=== PATIENT | male | born 1995 | race Two or more races ===

== ENCOUNTER 2019-04-19 22:43 | Emergency (ER) | payer MEDICAID ==
[~2019-04-19] VITALS: Ht 170.2 cm; Wt 93.4 kg
--- NOTE | 2019-04-19 23:08 | NUR ---
DR. RAMOS AT BEDSIDE FOR MSE.
[2019-04-19] MEDS ORDERED: OXYCODONE/APAP 5-325 MG TABLET ONE (23:57)
[2019-04-20] MEDS ORDERED: OXYCODONE/APAP 5-325 MG TABLET PO ONE
[2019-04-20 00:20] VITALS: BP 148/90
== END 2019-04-20 00:20 | disposition home or self-care (01) ==
LOC: ER 22:50
DX: N20.0 Calculus of kidney (principal)
CPT/HCPCS: A4663

== ENCOUNTER 2021-02-27 00:25 | Emergency (ER) | payer MEDICAID ==
[~2021-02-27] VITALS: Ht 170.2 cm; Wt 90.7 kg
--- NOTE | 2021-02-27 00:46 | NUR ---
Dr. Estrada at bedside
[2021-02-27] MEDS ORDERED: HYDR-3980 PO (01:01)
--- NOTE | 2021-02-27 01:24 | NUR ---
Patient discharged to home in stable condition. Written and verbal after care instructions given. Patient verbalizes understanding of instructions. Stressed follow up or return to ER for worsening s/s. NAD. VSS. All belongings taken.
[2021-02-27 01:25] VITALS: BP 119/75
== END 2021-02-27 01:25 | disposition home or self-care (01) ==
LOC: ER 00:31
DX: M94.0 Chondrocostal junction syndrome [Tietze] (principal); I45.10 Unspecified right bundle-branch block
CPT/HCPCS: 93005; A4663

== ENCOUNTER 2023-01-14 17:19 | Emergency (ER) | payer MEDICAID ==
[~2023-01-14] VITALS: Ht 170.2 cm; Wt 108.9 kg
[~2023-01-14 17:19] MED LIST: HYDR-3980 PO
[2023-01-14] MEDS ORDERED: PRED20TA PO (17:33)
[2023-01-14] MEDS ORDERED: DIPH25CA83 PO (17:33)
[2023-01-14] MEDS ORDERED: FAMO-132 PO (17:33)
[2023-01-14 17:43] VITALS: BP 120/75
== END 2023-01-14 17:43 | disposition home or self-care (01) ==
LOC: ER 17:20
DX: T78.40XA Allergy, unspecified, initial encounter (principal); Z79.899 Other long term (current) drug therapy; Y92.89 Other specified places as the place of occurrence of the external cause
CPT/HCPCS: A4663

== ENCOUNTER 2023-07-03 20:00 | Emergency (ER) | payer MEDICAID, OTHER ==
[~2023-07-03] VITALS: Ht 170.2 cm; Wt 93.9 kg
[~2023-07-03 20:00] MED LIST changes: +DIPH25CA83 PO; +FAMO-132 PO; +PRED20TA PO
[2023-07-03] MEDS ORDERED: KETOROLAC TROMETHAMINE 30 MG INJ ONE (21:42)
[2023-07-03] MEDS ORDERED: ONDANSETRON 4 MG/2 ML VIAL ONE (21:42)
[2023-07-03] MEDS ORDERED: HYDROMORPHONE 1 MG/1 ML DISP.SYRIN ONE (21:42)
[2023-07-03] MEDS ORDERED: KETOROLAC TROMETHAMINE 30 MG INJ IVP ONE (21:45)
[2023-07-03] MEDS ORDERED: ONDANSETRON 4 MG/2 ML VIAL IV ONE (21:45)
[2023-07-03] MEDS ORDERED: HYDROMORPHONE 1 MG/1 ML DISP.SYRIN IV ONE (21:45)
[2023-07-03 22:21] LABS: *BILIRUBIN,URIN NEGATIVE (NEGATIVE); *BLOOD, URINE NEGATIVE (NEGATIVE); *CLARITY,URINE CLEAR (CLEAR); *COLOR,URINE YELLOW (YELLOW); *KETONES,URINE NEGATIVE (NEGATIVE); *PROTEIN,URINE NEGATIVE (NEGATIVE); *UROBILINOGEN,URINE 0.2 E.U./dl (NORMAL); LEUKOCYTE ESTERASE ,URINE NEGATIVE (NEGATIVE); NITRITE, URINE NEGATIVE (NEGATIVE); PH,URINE 5.5 (5.0-8.0); UGLUCOSE NEGATIVE (NEGATIVE)
[2023-07-03] MEDS ORDERED: ONDA4TAB11 PO (22:36)
[2023-07-03] MEDS ORDERED: IBUP-1490 PO (22:36)
[2023-07-03] MEDS ORDERED: OXYC-133 PO (22:36)
[2023-07-03 22:44] VITALS: BP 138/82; TEMP 97.9; O2SAT 99
== END 2023-07-03 22:44 | disposition home or self-care (01) ==
LOC: ER 20:03
DX: N20.0 Calculus of kidney (principal); Z79.899 Other long term (current) drug therapy
CPT/HCPCS: 76770; A4606; A4663; J1170; J1885; J2405

== ENCOUNTER 2024-08-23 17:23 | Emergency (ER) | payer OTHER ==
[~2024-08-23] VITALS: Ht 170.2 cm; Wt 90.7 kg
[~2024-08-23 17:23] MED LIST changes: +IBUP-1490 PO; +ONDA4TAB11 PO; +OXYC-133 PO
[2024-08-23 18:24] LABS: BASOPHILS % (AUTO) 0.7 % (0.0-2.0); EOSINOPHILS # (AUTO) 0.2 K/uL (0.0-0.7); EOSINOPHILS % (AUTO) 2.7 % (0.0-7.0); HEMATOCRIT 42.3 % (36.7-47.1); HEMOGLOBIN 14.8 g/dL (12.5-16.3); LYMPHOCYTES # (AUTO) 2.4 K/uL (0.8-4.8); LYMPHOCYTES % (AUTO) 34.2 % (20.5-51.5); MEAN CORPUSCULAR HEMOGLOBIN 31.7 uug (23.8-33.4); MEAN CORPUSCULAR HGB CONC 35 g/dL (32.5-36.3); MEAN CORPUSCULAR VOLUME 90.8 fL (73.0-96.2); MONOCYTES # (AUTO) 0.5 K/uL (0.1-1.30); MONOCYTES % (AUTO) 7.2 % (0.0-11.0); NEUTROPHILS # (AUTO) 3.8 K/uL (1.8-8.9); NEUTROPHILS % (AUTO) 55.2 % (38.5-71.5); PLATELET COUNT (AUTO) 257 K/uL (152-348); RED BLOOD CELL COUNT(AUTO) 4.65 MIL/uL (4.06-5.63); RED CELL DISTRIBUTION WIDTH 13.9 % (12.1-16.2); WHITE BLOOD COUNT (AUTO) 6.9 K/uL (3.6-10.2)
[2024-08-23 18:38] LABS: CALCIUM 9.1 mg/dL (8.5-10.1); CARBON DIOXIDE 31 mmol/L (21-32); CHLORIDE 104 mmol/L (98-107); CREATININE 0.8 mg/dL (0.6-1.3); GLUCOSE 98 mg/dL (74-106); SODIUM SERUM 142 mmol/L (136-145); UREA NITROGEN, BLOOD 13 mg/dL (7-18)
[2024-08-23 18:55] LABS: ALANINE AMINOTRANSFERASE 50 U/L (16-63); ALBUMIN 4.2 g/dL (3.4-5.0); ALKALINE PHOSPHATASE 65 U/L (50-136); BILIRUBIN,TOTAL 0.4 mg/dL (0.2-1.0); TOTAL PROTEIN, SERUM 7.9 g/dL (6.4-8.2)
[2024-08-23 18:57] LABS: DIFFERENTIAL COMMENT 1
[2024-08-23 19:00] LABS: NT-PRO BNP < 5 pg/mL (0-125)
[2024-08-23 19:38] LABS: *BILIRUBIN,URIN NEGATIVE (NEGATIVE); *BLOOD, URINE NEGATIVE (NEGATIVE); *CLARITY,URINE CLEAR (CLEAR); *COLOR,URINE YELLOW (YELLOW); *KETONES,URINE NEGATIVE (NEGATIVE); *PROTEIN,URINE NEGATIVE (NEGATIVE); LEUKOCYTE ESTERASE ,URINE NEGATIVE (NEGATIVE); NITRITE, URINE NEGATIVE (NEGATIVE); UGLUCOSE NEGATIVE (NEGATIVE)
[2024-08-23 19:39] LABS: *AMPHETAMINE, URINE NEGATIVE (NEGATIVE); *BARBITURATE, URINE NEGATIVE (NEGATIVE); *BENZODIAZEPINE, URINE NEGATIVE (NEGATIVE); *CANNABINOID, URINE NEGATIVE (NEGATIVE); *COCCAINE, URINE NEGATIVE (NEGATIVE); *OPIATE, URINE NEGATIVE (NEGATIVE); *PHENCYCLIDINE SCREEN,URINE NEGATIVE (NEGATIVE); FENTANYL, URINE NEGATIVE (NEGATIVE)
[2024-08-23 19:51] LABS: ASPARTATE AMINOTRANSFERASE 22 U/L (15-37); BILIRUBIN,DIRECT 0.1 mg/dL (0.0-0.2)
[2024-08-23 20:00] LABS: BACTERIA,URINE FEW /HPF (NONE SEEN); RBC,URINE 0-3 /HPF (0-3); SQUAMOUS EPITHELIAL CELL,UR FEW /HPF (NONE SEEN); WBC,URINE 0-3 /HPF (0-3)
[2024-08-23] MEDS: KETOROLAC TROMETHAMINE 30 MG INJ IM ONE (20:23)
[2024-08-23] MEDS ORDERED: KETO10TA2 PO (21:07)
[2024-08-23 21:16] VITALS: BP 122/67; O2SAT 99
== END 2024-08-23 21:16 | disposition home or self-care (01) ==
LOC: ER 17:26
DX: R07.9 Chest pain, unspecified (principal); R06.00 Dyspnea, unspecified; R20.2 Paresthesia of skin; Z79.52 Long term (current) use of systemic steroids; Z87.442 Personal history of urinary calculi
CPT/HCPCS: 99285; 71045; 80076; 80048; 81001; 83880; 85025; 85379; 85730; 84484; 36415; 93005; 96372; 80307; J1885; A4606; A4663